=== PATIENT | male | born 1985 ===

== ENCOUNTER 2020-12-26 08:37 | Day surgery (SDC) | payer OTHER | END 2020-12-26 14:10 | disposition home or self-care (01) | LOC: AMB-ENDOS 08:37 | PROVIDERS: ATTEND Colon & Rectal Surgery | DX: D12.8 Benign neoplasm of rectum (principal); K52.89 Other specified noninfective gastroenteritis and colitis; K64.8 Other hemorrhoids; Z12.11 Encounter for screening for malignant neoplasm of colon; Z20.822 Contact with and (suspected) exposure to COVID-19 ==